=== PATIENT | female | born 1940 | race Caucasian/White ===

== ENCOUNTER → 2016-11-26 | Outpatient (CLI) | payer MEDICARE ==
[~2016-11-26] MED LIST: COMBIVENT0.074 GM/I INH; DALIRESP 500500 MCG PO; PREDNISONE 10 M10 MG PO; PRILOSEC20 MG PO; SINGULAIR10 MG PO; SPIRIVA HANDIH18 MCG INH; SYMBICORT 16010.2 GM INH; TOPROL XL 25 MG25 MG PO; ULTRAM50 MG PO; VITAMIN D400 UNI1 PO
== END ==
LOC: CT 12:21
DX: R91.8 Other nonspecific abnormal finding of lung field (principal); J43.2 Centrilobular emphysema; J98.4 Other disorders of lung
CPT/HCPCS: 71250

== ENCOUNTER → 2017-01-03 | Outpatient (CLI) | payer MEDICARE | LOC: US 13:20 | DX: M79.604 Pain in right leg (principal); M79.605 Pain in left leg | CPT/HCPCS: 93925 ==